=== PATIENT | male | born 1960 | race Caucasian/White ===

== ENCOUNTER 2021-06-07 11:37 | Inpatient (IN) ==
[2021-06-07 12:37] LABS: ALT 16 U/L (7-52); AST 21 U/L (13-39); Albumin 3.8 g/dL (3.2-5.2); Albumin/Globulin Ratio 1.1 (1-3); Alkaline Phosphatase 77 U/L (35-149); Anion Gap 6 mmol/L (2-11); Blood Urea Nitrogen 15 mg/dL (6-24); C Reactive Protein < 1.00 mg/L (<8.01); CO2 Carbon Dioxide 28 mmol/L (22-32); Calcium 9.6 mg/dL (8.6-10.3); Chloride 103 mmol/L (101-111); EGFR African American 151.6 (>60); EGFR Non-African American 125.3 (>60); Globulin 3.6 g/dL (2-4); Glucose 121 mg/dL (70-100); Potassium 4.4 mmol/L (3.5-5.0); Sodium 137 mmol/L (135-145); Total Protein 7.4 g/dL (6.4-8.9)
[2021-06-07 13:06] LABS: ABS Eosinophils 0.1 10^3/ul (0-0.6); ABS Lymphocytes 0.7 10^3/ul (1.0-4.8); ABS Monocytes 0.3 10^3/ul (0-0.8); ABS Neutrophils 1.8 10^3/ul (1.5-7.7); Eosinophil % 4.3 %; Hematocrit 26 % (42-52); Hemoglobin 8.8 g/dL (14.0-18.0); Lymphocyte % 24.1 %; Mean Corpuscular HGB Conc 34 g/dL (31-36); Mean Corpuscular Hemoglobin 31 pg (27-31); Mean Corpuscular Volume 92 fL (80-94); Mean Platelet Volume 7.2 fL (7.4-10.4); Platelet Count 85 10^3/uL (150-450); Red Blood Count 2.85 10^6 /uL (4.18-5.48); Red Cell Distribution Width 18 % (10-15)
[2021-06-07] MEDS ORDERED: Pantoprazole VIAL 40 MG VIAL IV ONE (13:10)
[2021-06-07 13:15] LABS: INR 1.05 (0.86-1.15)
[2021-06-07] MEDS: Pantoprazole 80 mg in NS BAG 80 MG/250 ML BAG IV SCH (14:33)
[2021-06-07 15:13] LABS: Rapid COVID-19 Molecular Undetected (Undetected)
[2021-06-07] MEDS ORDERED: LORazepam 2 mg VIAL 1 ml IV PUSH ONE (17:27)
[2021-06-07] MEDS ORDERED: Lorazepam PYXIS KEY PRN (17:27)
[2021-06-07] MEDS ORDERED: Albuterol HFA INHALER 8 gm MDI INH PRN (17:37)
[2021-06-07] MEDS: NS 0.9% 1000 ml BAG 1,000 ML IV SCH (17:47)
[2021-06-07 19:25] LABS: Urine Appearance Cloudy; Urine Bilirubin Negative (Negative); Urine Blood Negative (Negative); Urine Color Amber; Urine Glucose Negative (Negative); Urine Ketones Negative (Negative); Urine Nitrite Negative (Negative); Urine Protein 1+(30 mg/dL) (Negative); Urine Urobilinogen Negative (Negative)
[2021-06-07 19:35] LABS: Urine Bacteria Absent (Absent); Urine Red Blood Cell 1+(3-5/hpf) (Absent); Urine White Blood Cell Trace(0-5/hpf) (Absent); Urine Yeast Present (Absent)
[2021-06-07] MEDS ORDERED: Dextrose 50% Syringe 50 ml 25 GM/50 ML SYRINGE IV PUSH PRN (19:36)
[2021-06-07 20:01] LABS: ABS Eosinophils 0.1 10^3/ul (0-0.6); ABS Lymphocytes 0.8 10^3/ul (1.0-4.8); ABS Monocytes 0.3 10^3/ul (0-0.8); ABS Neutrophils 1.4 10^3/ul (1.5-7.7); Eosinophil % 4.5 %; Hematocrit 25 % (42-52); Hemoglobin 8.4 g/dL (14.0-18.0); Lymphocyte % 32.1 %; Mean Corpuscular HGB Conc 33 g/dL (31-36); Mean Corpuscular Hemoglobin 31 pg (27-31); Mean Corpuscular Volume 93 fL (80-94); Mean Platelet Volume 7.1 fL (7.4-10.4); Platelet Count 76 10^3/uL (150-450); Red Blood Count 2.71 10^6 /uL (4.18-5.48); Red Cell Distribution Width 18 % (10-15); White Blood Count 2.6 10^3/uL (3.5-10.8)
[2021-06-07] MEDS: LORazepam 2 mg VIAL 1 ml IV PUSH PRN (23:35)
[2021-06-08] MEDS: Pantoprazole 80 mg in NS BAG 80 MG/250 ML BAG IV SCH ×2 (00:08→10:27)
[2021-06-08 05:28] LABS: ABS Eosinophils 0.1 10^3/ul (0-0.6); ABS Lymphocytes 0.8 10^3/ul (1.0-4.8); ABS Monocytes 0.3 10^3/ul (0-0.8); ABS Neutrophils 1.6 10^3/ul (1.5-7.7); Eosinophil % 4.7 %; Hematocrit 25 % (42-52); Hemoglobin 8.6 g/dL (14.0-18.0); Lymphocyte % 30.1 %; Mean Corpuscular HGB Conc 34 g/dL (31-36); Mean Corpuscular Hemoglobin 31 pg (27-31); Mean Corpuscular Volume 92 fL (80-94); Platelet Count 79 10^3/uL (150-450); Red Blood Count 2.77 10^6 /uL (4.18-5.48); Red Cell Distribution Width 18 % (10-15); White Blood Count 2.8 10^3/uL (3.5-10.8)
[2021-06-08 05:48] LABS: Calcium 9.4 mg/dL (8.6-10.3); EGFR African American 134.7 (>60); EGFR Non-African American 111.4 (>60); Potassium 4.3 mmol/L (3.5-5.0)
[2021-06-08] MEDS: Tiotropium Brom/Olodaterol MDI INH SCH (07:25)
[2021-06-08] MEDS: NS 0.9% 1000 ml BAG 1,000 ML IV SCH (10:26)
[2021-06-08 13:32] LABS: ABS Eosinophils 0.1 10^3/ul (0-0.6); ABS Lymphocytes 0.8 10^3/ul (1.0-4.8); ABS Monocytes 0.3 10^3/ul (0-0.8); ABS Neutrophils 1.4 10^3/ul (1.5-7.7); Eosinophil % 4.8 %; Hematocrit 27 % (42-52); Hemoglobin 9.1 g/dL (14.0-18.0); Lymphocyte % 29.6 %; Mean Corpuscular HGB Conc 34 g/dL (31-36); Mean Corpuscular Hemoglobin 31 pg (27-31); Mean Corpuscular Volume 92 fL (80-94); Mean Platelet Volume 7.5 fL (7.4-10.4); Platelet Count 74 10^3/uL (150-450); Red Blood Count 2.91 10^6 /uL (4.18-5.48); Red Cell Distribution Width 18 % (10-15); White Blood Count 2.6 10^3/uL (3.5-10.8)
[2021-06-08] MEDS ORDERED: Midazolam 10 mg/10 ml VIAL 1 mg/ml 10 ml VIAL (10 mg) ONE (16:08)
[2021-06-08] MEDS ORDERED: fentaNYL 100 mcg/2 ml 50 MCG/ML VIAL ONE (16:09)
[2021-06-09] MEDS: Tiotropium Brom/Olodaterol MDI INH SCH (07:31)
[2021-06-09] MEDS ORDERED: Pantoprazole VIAL 40 MG VIAL IV SCH (09:00)
[2021-06-09] MEDS ORDERED: PAIN RELIEVING RUB (MENTHOL/SALICYLATE) 1 APPLIC TUBE TOPICAL PRN (12:09)
[2021-06-10 07:32] LABS: Hematocrit 27 % (42-52); Mean Corpuscular HGB Conc 34 g/dL (31-36); Mean Corpuscular Hemoglobin 31 pg (27-31); Mean Corpuscular Volume 91 fL (80-94); Mean Platelet Volume 7.4 fL (7.4-10.4); Platelet Count 85 10^3/uL (150-450); Red Blood Count 2.92 10^6 /uL (4.18-5.48); Red Cell Distribution Width 17 % (10-15); White Blood Count 2.9 10^3/uL (3.5-10.8)
[2021-06-10 07:57] LABS: ABS Eosinophils 0.1 10^3/ul (0-0.6); ABS Lymphocytes 0.8 10^3/ul (1.0-4.8); ABS Monocytes 0.3 10^3/ul (0-0.8); ABS Neutrophils 1.6 10^3/ul (1.5-7.7); Eosinophil % 4.3 %; Lymphocyte % 29.2 %; Nucleated Red Blood Cells % 0.1
[2021-06-10] MEDS: Tiotropium Brom/Olodaterol MDI INH SCH (09:09)
[2021-06-10 12:36] LABS: TSH Ultra Thyroid Stim Horm 1.04 mcIU/mL (0.34-5.60)
[2021-06-11] MEDS: Tiotropium Brom/Olodaterol MDI INH SCH (07:44)
[2021-06-11 14:29] LABS: Rapid COVID-19 Molecular Undetected (Undetected)
[2021-06-11] MEDS: LORazepam 2 mg VIAL 1 ml IV PUSH PRN (21:43)
[2021-06-12] MEDS: Tiotropium Brom/Olodaterol MDI INH SCH (07:29)
[2021-06-12 12:53] VITALS: BP 115/74
== END 2021-06-12 15:00 | DRG 241 ==
LOC: ED 11:37 → SUATTDRO 23:54 → MEDTELE 23:54
PROVIDERS: ADMIT Internal Medicine; ATTEND Hospitalist

== ENCOUNTER 2021-08-20 17:32 | Inpatient (IN) ==
[2021-08-20 18:47] LABS: ABS Basophils 0.1 10^3/ul (0-0.2); ABS Eosinophils 0.3 10^3/ul (0-0.6); ABS Lymphocytes 1.6 10^3/ul (1.0-4.8); ABS Monocytes 0.7 10^3/ul (0-0.8); ABS Neutrophils 4.9 10^3/ul (1.5-7.7); Eosinophil % 4.3 %; Hematocrit 32 % (42-52); Lymphocyte % 21.3 %; Mean Corpuscular HGB Conc 34 g/dL (31-36); Mean Corpuscular Hemoglobin 29 pg (27-31); Mean Corpuscular Volume 84 fL (80-94); Mean Platelet Volume 7.3 fL (7.4-10.4); Platelet Count 128 10^3/uL (150-450); Red Blood Count 3.85 10^6 /uL (4.18-5.48); Red Cell Distribution Width 17 % (10-15); White Blood Count 7.5 10^3/uL (3.5-10.8)
[2021-08-20 19:27] LABS: Albumin 4.3 g/dL (3.2-5.2); Calcium 9.5 mg/dL (8.6-10.3); Magnesium 1.9 mg/dL (1.9-2.7); Potassium 4.8 mmol/L (3.5-5.0); Total Bilirubin 0.5 mg/dL (0.2-1.0)
[2021-08-20 19:33] LABS: Albumin/Globulin Ratio 1.5 (1-3); Globulin 2.9 g/dL (2-4); Total Protein 7.2 g/dL (6.4-8.9); eGFR CKD-EPI 74.4 (>60)
[2021-08-20 19:45] LABS: TSH Ultra Thyroid Stim Horm 1.22 mcIU/mL (0.34-5.60)
[2021-08-20 19:54] LABS: Activated Partial Thrombo Time 34.6 seconds (26.0-38.0); INR 1.15 (0.86-1.15)
[2021-08-20] MEDS ORDERED: Pantoprazole VIAL 40 MG VIAL IV ONE (20:06)
[2021-08-20] MEDS ORDERED: Pantoprazole 80 mg in NS BAG 80 MG/250 ML BAG IV ONE (20:30)
[2021-08-20] MEDS ORDERED: hydrOXYzine LIQ ORALSYR 2 MG/ML PO PRN (23:01)
[2021-08-20] MEDS ORDERED: Albuterol/Ipratropium NEB.SOL (2.5/0.5 MG) 3 ML NEB.SOLN INH PRN (23:01)
[2021-08-20] MEDS ORDERED: Senna TAB 8.6 mg TAB PO PRN (23:01)
[2021-08-20] MEDS ORDERED: Albuterol HFA INHALER 8 gm MDI INH PRN (23:01)
[2021-08-20] MEDS ORDERED: NS 0.9% 1000 ml BAG 1,000 ML IV SCH (23:15)
[2021-08-20] MEDS ORDERED: Dextrose 50% Syringe 50 ml 25 GM/50 ML SYRINGE IV PUSH PRN (23:19)
[2021-08-21 00:16] LABS: Corrected Retic Count 1.6 % (0.5-1.5); Hematocrit for Retic CNT 32 % (42-52); Immature Retic Fraction 0.45; RBC Retic Count 3.88 10^6/uL (4.18-5.48)
[2021-08-21 01:37] LABS: Rapid COVID-19 Molecular Undetected (Undetected)
[2021-08-21 01:45] LABS: Ferritin 24.6 ng/mL (24-336)
[2021-08-21 04:19] LABS: Hematocrit 28 % (42-52); Hemoglobin 9.2 g/dL (14.0-18.0)
[2021-08-21] MEDS ORDERED: Pantoprazole VIAL 40 MG VIAL IV SCH (09:00)
[2021-08-21] MEDS ORDERED: Umeclidin/Vilant 62.5 MDI 62.5/25 mcg 14 INH ELLIPTA DEVICE INH SCH (09:00)
[2021-08-21 09:31] LABS: Hematocrit 25 % (42-52); Hemoglobin 8.2 g/dL (14.0-18.0)
[2021-08-21] MEDS: Vitamin THERAPEUTIC TAB PO SCH (10:00)
[2021-08-21] MEDS: PAIN RELIEVING RUB (MENTHOL/SALICYLATE) 1 APPLIC TUBE TOPICAL SCH (11:10)
[2021-08-21] MEDS: Pantoprazole 80 mg in NS BAG 80 MG/250 ML BAG IV SCH ×2 (12:59→20:42)
[2021-08-21] MEDS ORDERED: Lactated Ringers 1000 ml BAG 1,000 ML IV ONE (15:34)
[2021-08-21 15:37] LABS: Hematocrit 23 % (42-52); Hemoglobin 7.6 g/dL (14.0-18.0)
[2021-08-21] MEDS ORDERED: Buffered Lidocaine 1% SYRIN 1 ml INTRADERM ONE (19:09)
[2021-08-21 21:41] LABS: Urine Appearance Cloudy; Urine Bilirubin Negative (Negative); Urine Blood Negative (Negative); Urine Color Yellow; Urine Glucose Negative (Negative); Urine Ketones Trace (Negative); Urine Nitrite Negative (Negative); Urine Protein 1+(30 mg/dL) (Negative); Urine Specific Gravity 1.018 (1.002-1.030); Urine Urobilinogen Negative (Negative)
[2021-08-21 22:01] LABS: Urine Bacteria Absent (Absent); Urine Red Blood Cell Absent (Absent); Urine Squamous Epithelial Cell Present (Absent); Urine White Blood Cell 3+(>20/hpf) (Absent)
[2021-08-22 00:16] LABS: Hematocrit 24 % (42-52); Hemoglobin 8.3 g/dL (14.0-18.0)
[2021-08-22 06:37] LABS: Hematocrit 21 % (42-52); Hemoglobin 7.4 g/dL (14.0-18.0); Mean Corpuscular HGB Conc 35 g/dL (31-36); Mean Corpuscular Hemoglobin 29 pg (27-31); Mean Corpuscular Volume 84 fL (80-94); Red Blood Count 2.52 10^6 /uL (4.18-5.48); Red Cell Distribution Width 17 % (10-15); White Blood Count 5.2 10^3/uL (3.5-10.8)
[2021-08-22 06:44] LABS: Calcium 8.6 mg/dL (8.6-10.3); Potassium 3.9 mmol/L (3.5-5.0); eGFR CKD-EPI 78.6 (>60)
[2021-08-22 06:57] LABS: ABS Eosinophils 0.2 10^3/ul (0-0.6); ABS Lymphocytes 1.5 10^3/ul (1.0-4.8); ABS Monocytes 0.6 10^3/ul (0-0.8); ABS Neutrophils 2.8 10^3/ul (1.5-7.7); Eosinophil % 3.4 %; Lymphocyte % 29.5 %; Mean Platelet Volume 6.3 fL (7.4-10.4); Nucleated Red Blood Cells % 0.1; Platelet Count 83 10^3/uL (150-450)
[2021-08-22] MEDS: Tiotropium Brom/Olodaterol MDI INH SCH (08:25)
[2021-08-22] MEDS: Vitamin THERAPEUTIC TAB PO SCH (08:41)
[2021-08-22] MEDS: Pantoprazole 80 mg in NS BAG 80 MG/250 ML BAG IV SCH (10:54)
[2021-08-22] MEDS: PAIN RELIEVING RUB (MENTHOL/SALICYLATE) 1 APPLIC TUBE TOPICAL SCH ×2 (10:55→21:22)
[2021-08-22 14:22] LABS: Hematocrit 23 % (42-52)
[2021-08-22 19:00] LABS: Hematocrit 21 % (42-52); Hemoglobin 7.4 g/dL (14.0-18.0)
[2021-08-23] MEDS: Pantoprazole 80 mg in NS BAG 80 MG/250 ML BAG IV SCH ×3 (04:29→15:21)
[2021-08-23 07:34] LABS: ABS Eosinophils 0.1 10^3/ul (0-0.6); ABS Lymphocytes 0.5 10^3/ul (1.0-4.8); ABS Monocytes 0.3 10^3/ul (0-0.8); ABS Neutrophils 1.3 10^3/ul (1.5-7.7); Eosinophil % 3.5 %; Hematocrit 25 % (42-52); Hemoglobin 8.7 g/dL (14.0-18.0); Lymphocyte % 21.7 %; Mean Corpuscular HGB Conc 35 g/dL (31-36); Mean Corpuscular Hemoglobin 30 pg (27-31); Mean Corpuscular Volume 85 fL (80-94); Mean Platelet Volume 6.7 fL (7.4-10.4); Nucleated Red Blood Cells % 0.1; Platelet Count 56 10^3/uL (150-450); Red Blood Count 2.93 10^6 /uL (4.18-5.48); Red Cell Distribution Width 16 % (10-15); White Blood Count 2.2 10^3/uL (3.5-10.8)
[2021-08-23] MEDS: Tiotropium Brom/Olodaterol MDI INH SCH (07:55)
[2021-08-23] MEDS: Vitamin THERAPEUTIC TAB PO SCH (07:58)
[2021-08-23] MEDS: PAIN RELIEVING RUB (MENTHOL/SALICYLATE) 1 APPLIC TUBE TOPICAL SCH ×2 (07:59→22:19)
[2021-08-23 15:56] LABS: Hematocrit 24 % (42-52); Hemoglobin 8.4 g/dL (14.0-18.0)
[2021-08-24] MEDS: Pantoprazole 80 mg in NS BAG 80 MG/250 ML BAG IV SCH ×3 (01:30→20:54)
[2021-08-24] MEDS: Tiotropium Brom/Olodaterol MDI INH SCH (07:45)
[2021-08-24 07:47] LABS: Hematocrit 28 % (42-52); Hemoglobin 9.8 g/dL (14.0-18.0); Mean Corpuscular HGB Conc 35 g/dL (31-36); Mean Corpuscular Hemoglobin 30 pg (27-31); Mean Corpuscular Volume 85 fL (80-94); Mean Platelet Volume 7.1 fL (7.4-10.4); Platelet Count 48 10^3/uL (150-450); Red Cell Distribution Width 15 % (10-15); White Blood Count 2.6 10^3/uL (3.5-10.8)
[2021-08-24 07:51] LABS: Calcium 8.7 mg/dL (8.6-10.3); Potassium 3.6 mmol/L (3.5-5.0); eGFR CKD-EPI 102.5 (>60)
[2021-08-24 08:29] LABS: RBC Morphology Normal (Normal)
[2021-08-24 08:30] LABS: ABS Lymphocytes 0.6 10^3/ul (1.0-4.8); ABS Monocytes 0.4 10^3/ul (0-0.8); ABS Neutrophils 1.6 10^3/ul (1.5-7.7); Eosinophil % 0.8 %; Lymphocyte % 22.3 %; Nucleated Red Blood Cells % 0.3
[2021-08-24] MEDS: PAIN RELIEVING RUB (MENTHOL/SALICYLATE) 1 APPLIC TUBE TOPICAL SCH ×2 (09:50→20:56)
[2021-08-24] MEDS: Vitamin THERAPEUTIC TAB PO SCH (09:50)
[2021-08-24] MEDS ORDERED: NS 0.9% 1000 ml BAG 1,000 ML IV SCH (10:45)
[2021-08-24] MEDS: cefTRIAXone 1 gm/50 mL NS BAG 1 GM/50 ML BAG IVPB SCH (15:29)
[2021-08-24] MEDS ORDERED: Midazolam 10 mg/10 ml VIAL 1 mg/ml 10 ml VIAL (10 mg) ONE (16:43)
[2021-08-24] MEDS ORDERED: fentaNYL 100 mcg/2 ml 50 MCG/ML VIAL ONE (16:43)
[2021-08-25] MEDS: Acetaminophen IV 1 GM/100ML 100 ML IV PRN (04:30)
[2021-08-25] MEDS: Pantoprazole 80 mg in NS BAG 80 MG/250 ML BAG IV SCH ×3 (04:45→20:39)
[2021-08-25 06:40] LABS: ABS Eosinophils 0.1 10^3/ul (0-0.6); ABS Lymphocytes 0.7 10^3/ul (1.0-4.8); ABS Monocytes 0.4 10^3/ul (0-0.8); Hematocrit 27 % (42-52); Hemoglobin 9.4 g/dL (14.0-18.0); Lymphocyte % 22.8 %; Mean Corpuscular HGB Conc 35 g/dL (31-36); Mean Corpuscular Hemoglobin 30 pg (27-31); Mean Corpuscular Volume 86 fL (80-94); Mean Platelet Volume 7.4 fL (7.4-10.4); Nucleated Red Blood Cells % 0.1; Platelet Count 60 10^3/uL (150-450); Red Blood Count 3.18 10^6 /uL (4.18-5.48); Red Cell Distribution Width 16 % (10-15); White Blood Count 3.2 10^3/uL (3.5-10.8)
[2021-08-25] MEDS: Tiotropium Brom/Olodaterol MDI INH SCH (07:54)
[2021-08-25] MEDS: Vitamin THERAPEUTIC TAB PO SCH (09:40)
[2021-08-25] MEDS: PAIN RELIEVING RUB (MENTHOL/SALICYLATE) 1 APPLIC TUBE TOPICAL SCH ×2 (09:42→20:40)
[2021-08-25] MEDS: cefTRIAXone 1 gm/50 mL NS BAG 1 GM/50 ML BAG IVPB SCH (15:37)
[2021-08-25 18:07] LABS: % Iron Saturation 16 % (14 - 50); Total Iron Binding Capacity 322 mcg/dL (250 - 400)
[2021-08-26 06:30] LABS: ABS Eosinophils 0.1 10^3/ul (0-0.6); ABS Lymphocytes 0.6 10^3/ul (1.0-4.8); ABS Monocytes 0.2 10^3/ul (0-0.8); ABS Neutrophils 1.4 10^3/ul (1.5-7.7); Eosinophil % 5.3 %; Hematocrit 27 % (42-52); Lymphocyte % 24.9 %; Mean Corpuscular HGB Conc 34 g/dL (31-36); Mean Corpuscular Hemoglobin 29 pg (27-31); Mean Corpuscular Volume 86 fL (80-94); Mean Platelet Volume 7.4 fL (7.4-10.4); Nucleated Red Blood Cells % 0.1; Platelet Count 57 10^3/uL (150-450); Red Blood Count 3.08 10^6 /uL (4.18-5.48); Red Cell Distribution Width 16 % (10-15); White Blood Count 2.4 10^3/uL (3.5-10.8)
[2021-08-26] MEDS: Tiotropium Brom/Olodaterol MDI INH SCH (07:14)
[2021-08-26] MEDS: Vitamin THERAPEUTIC TAB PO SCH (07:39)
[2021-08-26] MEDS: PAIN RELIEVING RUB (MENTHOL/SALICYLATE) 1 APPLIC TUBE TOPICAL SCH ×2 (07:44→22:43)
[2021-08-26] MEDS: Pantoprazole 80 mg in NS BAG 80 MG/250 ML BAG IV SCH (09:11)
[2021-08-26] MEDS: cefTRIAXone 1 gm/50 mL NS BAG 1 GM/50 ML BAG IVPB SCH (17:03)
[2021-08-27 04:22] LABS: Red Blood Count 2.08 10^6 /uL (4.18-5.48); White Blood Count 3.1 10^3/uL (3.5-10.8)
[2021-08-27 04:25] LABS: Hematocrit 18 % (42-52); Hemoglobin 6.1 g/dL (14.0-18.0); Mean Corpuscular HGB Conc 34 g/dL (31-36); Mean Corpuscular Hemoglobin 29 pg (27-31); Mean Corpuscular Volume 85 fL (80-94); Mean Platelet Volume 7.2 fL (7.4-10.4); Platelet Count 88 10^3/uL (150-450); Red Cell Distribution Width 15 % (10-15)
[2021-08-27 04:26] LABS: ABS Eosinophils 0.1 10^3/ul (0-0.6); ABS Lymphocytes 0.7 10^3/ul (1.0-4.8); ABS Monocytes 0.4 10^3/ul (0-0.8); ABS Neutrophils 1.9 10^3/ul (1.5-7.7); Eosinophil % 4.6 %; Lymphocyte % 22.3 %
[2021-08-27] MEDS: Vitamin THERAPEUTIC TAB PO SCH (07:40)
[2021-08-27] MEDS: Tiotropium Brom/Olodaterol MDI INH SCH (08:33)
[2021-08-27] MEDS: Pantoprazole 80 mg in NS BAG 80 MG/250 ML BAG IV SCH ×2 (10:17→22:36)
[2021-08-27] MEDS: PAIN RELIEVING RUB (MENTHOL/SALICYLATE) 1 APPLIC TUBE TOPICAL SCH ×2 (10:17→22:36)
[2021-08-27 16:00] LABS: Hematocrit 25 % (42-52); Hemoglobin 8.4 g/dL (14.0-18.0)
[2021-08-27 16:29] LABS: Potassium 3.8 mmol/L (3.5-5.0); eGFR CKD-EPI 103.7 (>60)
[2021-08-27] MEDS: cefTRIAXone 1 gm/50 mL NS BAG 1 GM/50 ML BAG IVPB SCH (16:34)
[2021-08-27 21:53] LABS: Hematocrit 23 % (42-52); Hemoglobin 7.9 g/dL (14.0-18.0)
[2021-08-28 04:28] LABS: Hematocrit 19 % (42-52); Hemoglobin 6.3 g/dL (14.0-18.0)
[2021-08-28] MEDS: Pantoprazole 80 mg in NS BAG 80 MG/250 ML BAG IV SCH ×2 (06:29→17:08)
[2021-08-28] MEDS: Tiotropium Brom/Olodaterol MDI INH SCH (07:17)
[2021-08-28] MEDS: PAIN RELIEVING RUB (MENTHOL/SALICYLATE) 1 APPLIC TUBE TOPICAL SCH (07:39)
[2021-08-28] MEDS: Vitamin THERAPEUTIC TAB PO SCH (09:27)
[2021-08-28 11:46] LABS: ABS Eosinophils 0.1 10^3/ul (0-0.6); ABS Lymphocytes 0.5 10^3/ul (1.0-4.8); ABS Monocytes 0.2 10^3/ul (0-0.8); ABS Neutrophils 0.5 10^3/ul (1.5-7.7); Eosinophil % 5.9 %; Hematocrit 25 % (42-52); Hemoglobin 8.4 g/dL (14.0-18.0); Lymphocyte % 44.1 %; Mean Corpuscular HGB Conc 34 g/dL (31-36); Mean Corpuscular Hemoglobin 29 pg (27-31); Mean Corpuscular Volume 85 fL (80-94); Mean Platelet Volume 6.8 fL (7.4-10.4); Nucleated Red Blood Cells % 0.1; Platelet Count 60 10^3/uL (150-450); Red Blood Count 2.91 10^6 /uL (4.18-5.48); Red Cell Distribution Width 16 % (10-15); White Blood Count 1.2 10^3/uL (3.5-10.8)
[2021-08-28 13:28] LABS: Albumin 3.2 g/dL (3.2-5.2); Albumin/Globulin Ratio 1.3 (1-3); Calcium 8.1 mg/dL (8.6-10.3); Globulin 2.4 g/dL (2-4); Potassium 3.8 mmol/L (3.5-5.0); Total Bilirubin 0.5 mg/dL (0.2-1.0); Total Protein 5.6 g/dL (6.4-8.9); eGFR CKD-EPI 104.6 (>60)
[2021-08-28] MEDS: cefTRIAXone 1 gm/50 mL NS BAG 1 GM/50 ML BAG IVPB SCH (14:15)
[2021-08-28 19:31] LABS: Hematocrit 26 % (42-52); Hemoglobin 8.8 g/dL (14.0-18.0)
[2021-08-29] MEDS: PAIN RELIEVING RUB (MENTHOL/SALICYLATE) 1 APPLIC TUBE TOPICAL SCH ×3 (01:14→22:09)
[2021-08-29] MEDS: Pantoprazole 80 mg in NS BAG 80 MG/250 ML BAG IV SCH ×2 (03:53→14:39)
[2021-08-29 06:52] LABS: ABS Eosinophils 0.1 10^3/ul (0-0.6); ABS Lymphocytes 0.6 10^3/ul (1.0-4.8); ABS Monocytes 0.1 10^3/ul (0-0.8); ABS Neutrophils 0.7 10^3/ul (1.5-7.7); Eosinophil % 6.8 %; Hematocrit 25 % (42-52); Hemoglobin 8.5 g/dL (14.0-18.0); Lymphocyte % 39.5 %; Mean Corpuscular HGB Conc 34 g/dL (31-36); Mean Corpuscular Hemoglobin 29 pg (27-31); Mean Corpuscular Volume 84 fL (80-94); Platelet Count 62 10^3/uL (150-450); Red Blood Count 2.93 10^6 /uL (4.18-5.48); Red Cell Distribution Width 16 % (10-15); White Blood Count 1.5 10^3/uL (3.5-10.8)
[2021-08-29 06:58] LABS: Calcium 8.1 mg/dL (8.6-10.3); Potassium 3.7 mmol/L (3.5-5.0); eGFR CKD-EPI 102.9 (>60)
[2021-08-29] MEDS: Vitamin THERAPEUTIC TAB PO SCH (07:58)
[2021-08-29] MEDS: Tiotropium Brom/Olodaterol MDI INH SCH (10:10)
[2021-08-29] MEDS: cefTRIAXone 1 gm/50 mL NS BAG 1 GM/50 ML BAG IVPB SCH (14:44)
[2021-08-30] MEDS: Pantoprazole 80 mg in NS BAG 80 MG/250 ML BAG IV SCH ×3 (01:59→23:38)
[2021-08-30 05:54] LABS: Hematocrit 25 % (42-52); Hemoglobin 8.5 g/dL (14.0-18.0); Mean Corpuscular HGB Conc 34 g/dL (31-36); Mean Corpuscular Hemoglobin 29 pg (27-31); Mean Corpuscular Volume 84 fL (80-94); Mean Platelet Volume 7.3 fL (7.4-10.4); Platelet Count 71 10^3/uL (150-450); Red Blood Count 2.97 10^6 /uL (4.18-5.48); Red Cell Distribution Width 15 % (10-15); White Blood Count 1.7 10^3/uL (3.5-10.8)
[2021-08-30 06:01] LABS: Albumin 3.2 g/dL (3.2-5.2); Albumin/Globulin Ratio 1.2 (1-3); Calcium 8.2 mg/dL (8.6-10.3); Globulin 2.6 g/dL (2-4); Potassium 3.6 mmol/L (3.5-5.0); Total Bilirubin 0.3 mg/dL (0.2-1.0); Total Protein 5.8 g/dL (6.4-8.9); eGFR CKD-EPI 100.2 (>60)
[2021-08-30 06:04] LABS: ABS Eosinophils 0.1 10^3/ul (0-0.6); ABS Lymphocytes 0.6 10^3/ul (1.0-4.8); ABS Monocytes 0.2 10^3/ul (0-0.8); ABS Neutrophils 0.8 10^3/ul (1.5-7.7); Eosinophil % 7.3 %; Lymphocyte % 37.1 %; Nucleated Red Blood Cells % 0.1
[2021-08-30] MEDS: Tiotropium Brom/Olodaterol MDI INH SCH (07:08)
[2021-08-30] MEDS: PAIN RELIEVING RUB (MENTHOL/SALICYLATE) 1 APPLIC TUBE TOPICAL SCH ×2 (08:45→22:53)
[2021-08-30] MEDS: Vitamin THERAPEUTIC TAB PO SCH (08:45)
[2021-08-30] MEDS: cefTRIAXone 1 gm/50 mL NS BAG 1 GM/50 ML BAG IVPB SCH (14:35)
[2021-08-31 07:35] LABS: ABS Eosinophils 0.1 10^3/ul (0-0.6); ABS Lymphocytes 0.7 10^3/ul (1.0-4.8); ABS Monocytes 0.2 10^3/ul (0-0.8); ABS Neutrophils 0.9 10^3/ul (1.5-7.7); Eosinophil % 6.1 %; Hematocrit 25 % (42-52); Hemoglobin 8.7 g/dL (14.0-18.0); Lymphocyte % 33.9 %; Mean Corpuscular HGB Conc 34 g/dL (31-36); Mean Corpuscular Hemoglobin 29 pg (27-31); Mean Corpuscular Volume 85 fL (80-94); Mean Platelet Volume 7.2 fL (7.4-10.4); Platelet Count 80 10^3/uL (150-450); Red Blood Count 2.97 10^6 /uL (4.18-5.48); Red Cell Distribution Width 15 % (10-15); White Blood Count 1.9 10^3/uL (3.5-10.8)
[2021-08-31 07:48] LABS: Albumin 3.3 g/dL (3.2-5.2); Albumin/Globulin Ratio 1.2 (1-3); Calcium 8.4 mg/dL (8.6-10.3); Globulin 2.7 g/dL (2-4); Potassium 3.9 mmol/L (3.5-5.0); Total Bilirubin 0.3 mg/dL (0.2-1.0); eGFR CKD-EPI 99.5 (>60)
[2021-08-31] MEDS: Pantoprazole 80 mg in NS BAG 80 MG/250 ML BAG IV SCH ×3 (08:00→21:19)
[2021-08-31] MEDS: PAIN RELIEVING RUB (MENTHOL/SALICYLATE) 1 APPLIC TUBE TOPICAL SCH ×2 (08:00→21:20)
[2021-08-31] MEDS: Vitamin THERAPEUTIC TAB PO SCH (08:01)
[2021-08-31] MEDS: Tiotropium Brom/Olodaterol MDI INH SCH (09:35)
[2021-08-31] MEDS: Acetaminophen IV 1 GM/100ML 100 ML IV PRN (21:15)
[2021-09-01 05:58] LABS: ABS Eosinophils 0.1 10^3/ul (0-0.6); ABS Lymphocytes 0.6 10^3/ul (1.0-4.8); ABS Monocytes 0.3 10^3/ul (0-0.8); ABS Neutrophils 0.9 10^3/ul (1.5-7.7); Eosinophil % 5.8 %; Hematocrit 25 % (42-52); Hemoglobin 8.4 g/dL (14.0-18.0); Lymphocyte % 34.1 %; Mean Corpuscular HGB Conc 34 g/dL (31-36); Mean Corpuscular Hemoglobin 29 pg (27-31); Mean Corpuscular Volume 85 fL (80-94); Mean Platelet Volume 7.3 fL (7.4-10.4); Platelet Count 85 10^3/uL (150-450); Red Blood Count 2.93 10^6 /uL (4.18-5.48); Red Cell Distribution Width 16 % (10-15); White Blood Count 1.9 10^3/uL (3.5-10.8)
[2021-09-01 06:01] LABS: Albumin 3.3 g/dL (3.2-5.2); Albumin/Globulin Ratio 1.3 (1-3); Calcium 8.4 mg/dL (8.6-10.3); Globulin 2.6 g/dL (2-4); Potassium 3.8 mmol/L (3.5-5.0); Total Bilirubin 0.4 mg/dL (0.2-1.0); Total Protein 5.9 g/dL (6.4-8.9); eGFR CKD-EPI 98.4 (>60)
[2021-09-01] MEDS: Tiotropium Brom/Olodaterol MDI INH SCH (07:29)
[2021-09-01] MEDS: Pantoprazole 80 mg in NS BAG 80 MG/250 ML BAG IV SCH (08:46)
[2021-09-01] MEDS: Vitamin THERAPEUTIC TAB PO SCH (08:55)
[2021-09-01] MEDS: PAIN RELIEVING RUB (MENTHOL/SALICYLATE) 1 APPLIC TUBE TOPICAL SCH ×2 (08:55→20:51)
[2021-09-02 05:47] LABS: ABS Eosinophils 0.1 10^3/ul (0-0.6); ABS Lymphocytes 0.7 10^3/ul (1.0-4.8); ABS Monocytes 0.3 10^3/ul (0-0.8); ABS Neutrophils 1.4 10^3/ul (1.5-7.7); Eosinophil % 5.1 %; Hematocrit 26 % (42-52); Hemoglobin 8.8 g/dL (14.0-18.0); Mean Corpuscular HGB Conc 34 g/dL (31-36); Mean Corpuscular Hemoglobin 29 pg (27-31); Mean Corpuscular Volume 85 fL (80-94); Platelet Count 93 10^3/uL (150-450); Red Blood Count 3.07 10^6 /uL (4.18-5.48); Red Cell Distribution Width 15 % (10-15); White Blood Count 2.6 10^3/uL (3.5-10.8)
[2021-09-02] MEDS: Tiotropium Brom/Olodaterol MDI INH SCH (08:32)
[2021-09-02] MEDS: Vitamin THERAPEUTIC TAB PO SCH (09:39)
[2021-09-02] MEDS: PAIN RELIEVING RUB (MENTHOL/SALICYLATE) 1 APPLIC TUBE TOPICAL SCH ×2 (09:40→21:14)
[2021-09-03] MEDS: Tiotropium Brom/Olodaterol MDI INH SCH (07:28)
[2021-09-03] MEDS: Vitamin THERAPEUTIC TAB PO SCH (08:05)
[2021-09-03] MEDS: PAIN RELIEVING RUB (MENTHOL/SALICYLATE) 1 APPLIC TUBE TOPICAL SCH ×2 (08:06→20:13)
[2021-09-03 12:20] LABS: ABS Eosinophils 0.1 10^3/ul (0-0.6); ABS Lymphocytes 0.7 10^3/ul (1.0-4.8); ABS Monocytes 0.3 10^3/ul (0-0.8); ABS Neutrophils 2.2 10^3/ul (1.5-7.7); Eosinophil % 2.1 %; Hematocrit 25 % (42-52); Hemoglobin 8.6 g/dL (14.0-18.0); Lymphocyte % 20.5 %; Mean Corpuscular HGB Conc 34 g/dL (31-36); Mean Corpuscular Hemoglobin 29 pg (27-31); Mean Corpuscular Volume 85 fL (80-94); Mean Platelet Volume 7.2 fL (7.4-10.4); Nucleated Red Blood Cells % 0.1; Platelet Count 100 10^3/uL (150-450); Red Blood Count 2.97 10^6 /uL (4.18-5.48); Red Cell Distribution Width 15 % (10-15); White Blood Count 3.2 10^3/uL (3.5-10.8)
[2021-09-03 13:01] LABS: ALT 12 U/L (7-52); AST 16 U/L (13-39); Albumin 3.6 g/dL (3.2-5.2); Albumin/Globulin Ratio 1.4 (1-3); Alkaline Phosphatase 74 U/L (35-149); Anion Gap 4 mmol/L (2-11); Blood Urea Nitrogen 13 mg/dL (6-24); CO2 Carbon Dioxide 26 mmol/L (22-32); Calcium 8.9 mg/dL (8.6-10.3); Chloride 108 mmol/L (101-111); Globulin 2.6 g/dL (2-4); Glucose 210 mg/dL (70-100); Magnesium 1.8 mg/dL (1.9-2.7); Potassium 3.5 mmol/L (3.5-5.0); Sodium 138 mmol/L (135-145); Total Protein 6.2 g/dL (6.4-8.9); eGFR CKD-EPI 101.3 (>60)
[2021-09-03 13:18] LABS: Folate > 20.00 ng/mL (5.90-24.80)
[2021-09-03 13:19] LABS: Vitamin B12 491 pg/mL (180-914)
[2021-09-03] MEDS ORDERED: Magnesium Sulfate IV 1GM/100ML 1 GM/100 ML BAG IV ONE (13:24)
[2021-09-04] MEDS: PAIN RELIEVING RUB (MENTHOL/SALICYLATE) 1 APPLIC TUBE TOPICAL SCH ×2 (07:37→21:52)
[2021-09-04 07:57] LABS: ABS Eosinophils 0.1 10^3/ul (0-0.6); ABS Lymphocytes 0.6 10^3/ul (1.0-4.8); ABS Monocytes 0.3 10^3/ul (0-0.8); ABS Neutrophils 2.9 10^3/ul (1.5-7.7); Eosinophil % 2.7 %; Hematocrit 26 % (42-52); Hemoglobin 8.8 g/dL (14.0-18.0); Lymphocyte % 15.8 %; Mean Corpuscular HGB Conc 34 g/dL (31-36); Mean Corpuscular Hemoglobin 29 pg (27-31); Mean Corpuscular Volume 85 fL (80-94); Mean Platelet Volume 7.3 fL (7.4-10.4); Platelet Count 102 10^3/uL (150-450); Red Blood Count 3.07 10^6 /uL (4.18-5.48); Red Cell Distribution Width 15 % (10-15)
[2021-09-04 08:12] LABS: Calcium 9.1 mg/dL (8.6-10.3); Potassium 3.9 mmol/L (3.5-5.0); eGFR CKD-EPI 100.9 (>60)
[2021-09-04] MEDS: Tiotropium Brom/Olodaterol MDI INH SCH (08:36)
[2021-09-04] MEDS: Vitamin THERAPEUTIC TAB PO SCH (09:07)
[2021-09-05 04:52] LABS: ABS Eosinophils 0.1 10^3/ul (0-0.6); ABS Lymphocytes 0.7 10^3/ul (1.0-4.8); ABS Monocytes 0.3 10^3/ul (0-0.8); Eosinophil % 2.9 %; Hematocrit 26 % (42-52); Hemoglobin 8.6 g/dL (14.0-18.0); Lymphocyte % 16.7 %; Mean Corpuscular HGB Conc 33 g/dL (31-36); Mean Corpuscular Hemoglobin 28 pg (27-31); Mean Corpuscular Volume 84 fL (80-94); Mean Platelet Volume 7.3 fL (7.4-10.4); Platelet Count 107 10^3/uL (150-450); Red Blood Count 3.03 10^6 /uL (4.18-5.48); Red Cell Distribution Width 16 % (10-15); White Blood Count 4.2 10^3/uL (3.5-10.8)
[2021-09-05 05:08] LABS: Albumin 3.6 g/dL (3.2-5.2); Albumin/Globulin Ratio 1.2 (1-3); Calcium 9.1 mg/dL (8.6-10.3); Globulin 2.9 g/dL (2-4); Magnesium 1.9 mg/dL (1.9-2.7); Total Bilirubin 0.5 mg/dL (0.2-1.0); Total Protein 6.5 g/dL (6.4-8.9); eGFR CKD-EPI 87.2 (>60)
[2021-09-05] MEDS: Tiotropium Brom/Olodaterol MDI INH SCH (07:07)
[2021-09-05] MEDS: Vitamin THERAPEUTIC TAB PO SCH (08:35)
[2021-09-05] MEDS: PAIN RELIEVING RUB (MENTHOL/SALICYLATE) 1 APPLIC TUBE TOPICAL SCH ×2 (08:35→20:53)
[2021-09-06] MEDS: Tiotropium Brom/Olodaterol MDI INH SCH (07:32)
[2021-09-06] MEDS: Vitamin THERAPEUTIC TAB PO SCH (07:51)
[2021-09-06] MEDS: PAIN RELIEVING RUB (MENTHOL/SALICYLATE) 1 APPLIC TUBE TOPICAL SCH ×2 (07:51→20:28)
[2021-09-06] MEDS: Enoxaparin 40 MG/0.4 ML SYR SUBCUT SCH (12:47)
[2021-09-06 13:17] LABS: Rapid COVID-19 Molecular Undetected (Undetected)
[2021-09-07] MEDS: Tiotropium Brom/Olodaterol MDI INH SCH (08:31)
[2021-09-07] MEDS: Vitamin THERAPEUTIC TAB PO SCH (10:04)
[2021-09-07] MEDS: Enoxaparin 40 MG/0.4 ML SYR SUBCUT SCH (10:05)
[2021-09-07] MEDS: PAIN RELIEVING RUB (MENTHOL/SALICYLATE) 1 APPLIC TUBE TOPICAL SCH ×2 (10:05→21:16)
[2021-09-07] MEDS ORDERED: COVID-19 VACCINE, MRNA(PFIZER)/PF 30 MCG/0.3 ML IM ONE (15:00)
[2021-09-08] MEDS: Vitamin THERAPEUTIC TAB PO SCH (07:52)
[2021-09-08] MEDS: PAIN RELIEVING RUB (MENTHOL/SALICYLATE) 1 APPLIC TUBE TOPICAL SCH ×2 (07:52→21:35)
[2021-09-08] MEDS: Tiotropium Brom/Olodaterol MDI INH SCH (08:22)
[2021-09-08] MEDS: Enoxaparin 40 MG/0.4 ML SYR SUBCUT SCH (11:56)
[2021-09-09 05:36] LABS: ABS Eosinophils 0.1 10^3/ul (0-0.6); ABS Lymphocytes 0.6 10^3/ul (1.0-4.8); ABS Monocytes 0.5 10^3/ul (0-0.8); ABS Neutrophils 1.6 10^3/ul (1.5-7.7); Eosinophil % 3.1 %; Hematocrit 25 % (42-52); Hemoglobin 8.3 g/dL (14.0-18.0); Lymphocyte % 21.7 %; Mean Corpuscular HGB Conc 34 g/dL (31-36); Mean Corpuscular Hemoglobin 28 pg (27-31); Mean Corpuscular Volume 83 fL (80-94); Mean Platelet Volume 7.7 fL (7.4-10.4); Platelet Count 100 10^3/uL (150-450); Red Blood Count 2.98 10^6 /uL (4.18-5.48); Red Cell Distribution Width 16 % (10-15); White Blood Count 2.7 10^3/uL (3.5-10.8)
[2021-09-09] MEDS: Vitamin THERAPEUTIC TAB PO SCH (08:56)
[2021-09-09] MEDS: PAIN RELIEVING RUB (MENTHOL/SALICYLATE) 1 APPLIC TUBE TOPICAL SCH ×2 (08:57→22:10)
[2021-09-09] MEDS: Tiotropium Brom/Olodaterol MDI INH SCH (10:22)
[2021-09-09] MEDS: Enoxaparin 40 MG/0.4 ML SYR SUBCUT SCH (11:50)
[2021-09-10] MEDS: PAIN RELIEVING RUB (MENTHOL/SALICYLATE) 1 APPLIC TUBE TOPICAL SCH ×2 (05:31→07:33)
[2021-09-10] MEDS: Vitamin THERAPEUTIC TAB PO SCH (07:32)
[2021-09-10] MEDS: Tiotropium Brom/Olodaterol MDI INH SCH (07:34)
[2021-09-10] MEDS: Enoxaparin 40 MG/0.4 ML SYR SUBCUT SCH (12:20)
[2021-09-10 16:03] VITALS: BP 112/70
== END 2021-09-10 17:20 | disposition swing bed (61) | DRG 254 ==
LOC: ED 17:32 → SUATTDRO 22:57 → EDHOLD 22:57 → MEDTELE 08-21 08:06 → MED 08-24 22:32
PROVIDERS: ADMIT Hospitalist; ATTEND Hospitalist

== ENCOUNTER 2021-09-10 17:21 | Inpatient (IN) ==
[2021-09-10] MEDS ORDERED: Albuterol/Ipratropium NEB.SOL (2.5/0.5 MG) 3 ML NEB.SOLN INH PRN (17:42)
[2021-09-10] MEDS ORDERED: Albuterol HFA INHALER 8 gm MDI INH PRN (17:42)
[2021-09-10] MEDS ORDERED: Dextrose 50% Syringe 50 ml 25 GM/50 ML SYRINGE IV PUSH PRN (17:44)
[2021-09-11] MEDS: Tiotropium Brom/Olodaterol MDI INH SCH (08:12)
[2021-09-11] MEDS: Vitamin THERAPEUTIC TAB PO SCH (09:00)
[2021-09-11] MEDS: Enoxaparin 40 MG/0.4 ML SYR SUBCUT SCH (11:49)
[2021-09-12] MEDS: Tiotropium Brom/Olodaterol MDI INH SCH (07:37)
[2021-09-12] MEDS: Vitamin THERAPEUTIC TAB PO SCH (07:54)
[2021-09-12] MEDS: Enoxaparin 40 MG/0.4 ML SYR SUBCUT SCH (12:17)
[2021-09-12] MEDS: PAIN RELIEVING RUB (MENTHOL/SALICYLATE) 1 APPLIC TUBE TOPICAL PRN (21:05)
[2021-09-13] MEDS: Tiotropium Brom/Olodaterol MDI INH SCH (07:53)
[2021-09-13] MEDS: Vitamin THERAPEUTIC TAB PO SCH (08:49)
[2021-09-13] MEDS: PAIN RELIEVING RUB (MENTHOL/SALICYLATE) 1 APPLIC TUBE TOPICAL PRN (08:52)
[2021-09-13] MEDS: Enoxaparin 40 MG/0.4 ML SYR SUBCUT SCH (13:03)
[2021-09-14] MEDS: Tiotropium Brom/Olodaterol MDI INH SCH (08:17)
[2021-09-14] MEDS: Vitamin THERAPEUTIC TAB PO SCH (09:31)
[2021-09-14] MEDS: Enoxaparin 40 MG/0.4 ML SYR SUBCUT SCH (13:14)
[2021-09-15] MEDS: PAIN RELIEVING RUB (MENTHOL/SALICYLATE) 1 APPLIC TUBE TOPICAL PRN (07:49)
[2021-09-15] MEDS: Vitamin THERAPEUTIC TAB PO SCH (07:55)
[2021-09-15] MEDS: Tiotropium Brom/Olodaterol MDI INH SCH (08:16)
[2021-09-15] MEDS: Enoxaparin 40 MG/0.4 ML SYR SUBCUT SCH (12:29)
[2021-09-16] MEDS: PAIN RELIEVING RUB (MENTHOL/SALICYLATE) 1 APPLIC TUBE TOPICAL PRN ×2 (06:22→21:26)
[2021-09-16] MEDS: Tiotropium Brom/Olodaterol MDI INH SCH (08:48)
[2021-09-16] MEDS: Vitamin THERAPEUTIC TAB PO SCH (09:49)
[2021-09-16] MEDS: Enoxaparin 40 MG/0.4 ML SYR SUBCUT SCH (12:23)
[2021-09-17] MEDS: PAIN RELIEVING RUB (MENTHOL/SALICYLATE) 1 APPLIC TUBE TOPICAL PRN ×2 (06:17→20:33)
[2021-09-17] MEDS: Vitamin THERAPEUTIC TAB PO SCH (08:12)
[2021-09-17] MEDS: Tiotropium Brom/Olodaterol MDI INH SCH (10:46)
[2021-09-17 11:13] LABS: ABS Eosinophils 0.1 10^3/ul (0-0.6); ABS Lymphocytes 0.5 10^3/ul (1.0-4.8); ABS Monocytes 0.2 10^3/ul (0-0.8); ABS Neutrophils 1.3 10^3/ul (1.5-7.7); Eosinophil % 3.8 %; Hematocrit 25 % (42-52); Hemoglobin 8.5 g/dL (14.0-18.0); Mean Corpuscular HGB Conc 34 g/dL (31-36); Mean Corpuscular Hemoglobin 28 pg (27-31); Mean Corpuscular Volume 82 fL (80-94); Mean Platelet Volume 7.6 fL (7.4-10.4); Nucleated Red Blood Cells % 0.1; Platelet Count 76 10^3/uL (150-450); Red Cell Distribution Width 16 % (10-15); White Blood Count 2.1 10^3/uL (3.5-10.8)
[2021-09-17 11:45] LABS: Albumin 3.9 g/dL (3.2-5.2); Albumin/Globulin Ratio 1.4 (1-3); Globulin 2.7 g/dL (2-4); Potassium 4.1 mmol/L (3.5-5.0); Total Bilirubin 0.4 mg/dL (0.2-1.0); Total Protein 6.6 g/dL (6.4-8.9); eGFR CKD-EPI 98.1 (>60)
[2021-09-17] MEDS: Enoxaparin 40 MG/0.4 ML SYR SUBCUT SCH (12:08)
[2021-09-17] MEDS: Lidocaine Patch REMOVE NOTE PATCH OFF SCH (20:02)
[2021-09-17] MEDS ORDERED: diPHENhydraMINE 25 mg TAB PO ONE (20:57)
[2021-09-18] MEDS: Tiotropium Brom/Olodaterol MDI INH SCH (07:43)
[2021-09-18] MEDS: Vitamin THERAPEUTIC TAB PO SCH (07:50)
[2021-09-18] MEDS: Enoxaparin 40 MG/0.4 ML SYR SUBCUT SCH (12:52)
[2021-09-18] MEDS: Lidocaine Patch REMOVE NOTE PATCH OFF SCH (22:16)
[2021-09-19] MEDS: Vitamin THERAPEUTIC TAB PO SCH (08:11)
[2021-09-19] MEDS: Tiotropium Brom/Olodaterol MDI INH SCH (08:16)
[2021-09-19] MEDS: Enoxaparin 40 MG/0.4 ML SYR SUBCUT SCH (12:42)
[2021-09-19] MEDS: Lidocaine Patch REMOVE NOTE PATCH OFF SCH (19:54)
[2021-09-19] MEDS: PAIN RELIEVING RUB (MENTHOL/SALICYLATE) 1 APPLIC TUBE TOPICAL PRN (19:54)
[2021-09-20 02:06] LABS: Urine Appearance Clear; Urine Bilirubin Negative (Negative); Urine Blood Negative (Negative); Urine Color Yellow; Urine Glucose Negative (Negative); Urine Ketones Negative (Negative); Urine Nitrite Negative (Negative); Urine Protein 1+(30 mg/dL) (Negative); Urine Urobilinogen Negative (Negative)
[2021-09-20 02:09] LABS: Urine Bacteria Absent (Absent); Urine Red Blood Cell Trace(0-2/hpf) (Absent); Urine Squamous Epithelial Cell Present (Absent); Urine White Blood Cell Trace(0-5/hpf) (Absent)
[2021-09-20] MEDS: Tiotropium Brom/Olodaterol MDI INH SCH (09:01)
[2021-09-20] MEDS: Vitamin THERAPEUTIC TAB PO SCH (10:24)
[2021-09-20] MEDS: Enoxaparin 40 MG/0.4 ML SYR SUBCUT SCH (10:27)
[2021-09-20] MEDS: Lidocaine Patch REMOVE NOTE PATCH OFF SCH (22:07)
[2021-09-20] MEDS: PAIN RELIEVING RUB (MENTHOL/SALICYLATE) 1 APPLIC TUBE TOPICAL PRN (22:10)
[2021-09-21] MEDS: Vitamin THERAPEUTIC TAB PO SCH (07:38)
[2021-09-21] MEDS: Tiotropium Brom/Olodaterol MDI INH SCH (08:22)
[2021-09-21] MEDS: Enoxaparin 40 MG/0.4 ML SYR SUBCUT SCH (11:48)
[2021-09-21] MEDS: Lidocaine Patch REMOVE NOTE PATCH OFF SCH (21:34)
[2021-09-22] MEDS: Tiotropium Brom/Olodaterol MDI INH SCH (08:01)
[2021-09-22] MEDS: Vitamin THERAPEUTIC TAB PO SCH (09:06)
[2021-09-22] MEDS: Enoxaparin 40 MG/0.4 ML SYR SUBCUT SCH (11:54)
[2021-09-22] MEDS: Lidocaine Patch REMOVE NOTE PATCH OFF SCH (19:56)
[2021-09-23] MEDS: Tiotropium Brom/Olodaterol MDI INH SCH (07:40)
[2021-09-23] MEDS: Vitamin THERAPEUTIC TAB PO SCH (09:26)
[2021-09-23] MEDS: Enoxaparin 40 MG/0.4 ML SYR SUBCUT SCH (12:42)
[2021-09-23] MEDS: Lidocaine Patch REMOVE NOTE PATCH OFF SCH (20:06)
[2021-09-24 06:33] LABS: Hematocrit 27 % (42-52); Hemoglobin 8.9 g/dL (14.0-18.0); Platelet Count 71 10^3/uL (150-450)
[2021-09-24 06:51] LABS: eGFR CKD-EPI 100.6 (>60)
[2021-09-24] MEDS: Tiotropium Brom/Olodaterol MDI INH SCH (07:40)
[2021-09-24 08:54] LABS: Albumin 4.1 g/dL (3.2-5.2); Albumin/Globulin Ratio 1.5 (1-3); Globulin 2.7 g/dL (2-4); Potassium 3.7 mmol/L (3.5-5.0); Total Bilirubin 0.4 mg/dL (0.2-1.0); Total Protein 6.8 g/dL (6.4-8.9)
[2021-09-24] MEDS: Vitamin THERAPEUTIC TAB PO SCH (08:56)
[2021-09-24 10:14] LABS: ABS Eosinophils 0.1 10^3/ul (0-0.6); ABS Lymphocytes 0.6 10^3/ul (1.0-4.8); ABS Monocytes 0.2 10^3/ul (0-0.8); ABS Neutrophils 1.3 10^3/ul (1.5-7.7); Eosinophil % 4.2 %; Lymphocyte % 28.5 %; Mean Corpuscular HGB Conc 33 g/dL (31-36); Mean Corpuscular Hemoglobin 27 pg (27-31); Mean Corpuscular Volume 82 fL (80-94); Nucleated Red Blood Cells % 0.2; Red Blood Count 3.31 10^6 /uL (4.18-5.48); Red Cell Distribution Width 16 % (10-15); White Blood Count 2.3 10^3/uL (3.5-10.8)
[2021-09-24] MEDS: Enoxaparin 40 MG/0.4 ML SYR SUBCUT SCH (12:31)
[2021-09-24] MEDS: Lidocaine Patch REMOVE NOTE PATCH OFF SCH (19:34)
[2021-09-24] MEDS: PAIN RELIEVING RUB (MENTHOL/SALICYLATE) 1 APPLIC TUBE TOPICAL PRN (19:36)
[2021-09-25] MEDS: Tiotropium Brom/Olodaterol MDI INH SCH (07:08)
[2021-09-25] MEDS: Vitamin THERAPEUTIC TAB PO SCH (08:04)
[2021-09-25] MEDS: Enoxaparin 40 MG/0.4 ML SYR SUBCUT SCH (12:29)
[2021-09-25] MEDS: Lidocaine Patch REMOVE NOTE PATCH OFF SCH (20:39)
[2021-09-25] MEDS: PAIN RELIEVING RUB (MENTHOL/SALICYLATE) 1 APPLIC TUBE TOPICAL PRN (20:48)
[2021-09-26] MEDS: Tiotropium Brom/Olodaterol MDI INH SCH ×2 (06:57→06:59)
[2021-09-26] MEDS: PAIN RELIEVING RUB (MENTHOL/SALICYLATE) 1 APPLIC TUBE TOPICAL PRN (08:38)
[2021-09-26] MEDS: Vitamin THERAPEUTIC TAB PO SCH (09:04)
[2021-09-26] MEDS: Lidocaine PATCH 5% PATCH TRANSDERM PRN (09:04)
[2021-09-26] MEDS: Enoxaparin 40 MG/0.4 ML SYR SUBCUT SCH (13:19)
[2021-09-26] MEDS: Lidocaine Patch REMOVE NOTE PATCH OFF SCH (20:58)
[2021-09-27] MEDS: Tiotropium Brom/Olodaterol MDI INH SCH (07:37)
[2021-09-27] MEDS: PAIN RELIEVING RUB (MENTHOL/SALICYLATE) 1 APPLIC TUBE TOPICAL PRN ×2 (09:22→21:02)
[2021-09-27] MEDS: Vitamin THERAPEUTIC TAB PO SCH (09:22)
[2021-09-27] MEDS: Lidocaine PATCH 5% PATCH TRANSDERM PRN (09:22)
[2021-09-27] MEDS: Enoxaparin 40 MG/0.4 ML SYR SUBCUT SCH (12:30)
[2021-09-27] MEDS: Lidocaine Patch REMOVE NOTE PATCH OFF SCH (21:04)
[2021-09-28] MEDS: Tiotropium Brom/Olodaterol MDI INH SCH (07:28)
[2021-09-28] MEDS: Vitamin THERAPEUTIC TAB PO SCH (08:38)
[2021-09-28] MEDS: PAIN RELIEVING RUB (MENTHOL/SALICYLATE) 1 APPLIC TUBE TOPICAL PRN ×2 (08:38→20:32)
[2021-09-28] MEDS: Enoxaparin 40 MG/0.4 ML SYR SUBCUT SCH (12:46)
[2021-09-28] MEDS ORDERED: COVID-19 VACCINE, TRIS(PFIZER)/PF 30 MCG/0.3 ML IM ONE (15:00)
[2021-09-28] MEDS: Lidocaine Patch REMOVE NOTE PATCH OFF SCH (23:26)
[2021-09-29] MEDS: Tiotropium Brom/Olodaterol MDI INH SCH (08:26)
[2021-09-29] MEDS: Vitamin THERAPEUTIC TAB PO SCH (08:54)
[2021-09-29] MEDS: PAIN RELIEVING RUB (MENTHOL/SALICYLATE) 1 APPLIC TUBE TOPICAL PRN ×2 (08:57→20:10)
[2021-09-29] MEDS: Enoxaparin 40 MG/0.4 ML SYR SUBCUT SCH (12:38)
[2021-09-29] MEDS: Lidocaine Patch REMOVE NOTE PATCH OFF SCH (20:22)
[2021-09-30] MEDS: Tiotropium Brom/Olodaterol MDI INH SCH (07:31)
[2021-09-30] MEDS: Vitamin THERAPEUTIC TAB PO SCH (08:01)
[2021-09-30] MEDS: PAIN RELIEVING RUB (MENTHOL/SALICYLATE) 1 APPLIC TUBE TOPICAL PRN ×2 (08:01→08:05)
[2021-09-30] MEDS: Enoxaparin 40 MG/0.4 ML SYR SUBCUT SCH (12:36)
[2021-09-30] MEDS: Lidocaine Patch REMOVE NOTE PATCH OFF SCH (20:18)
[2021-10-01] MEDS: Tiotropium Brom/Olodaterol MDI INH SCH (07:37)
[2021-10-01 07:48] LABS: ABS Eosinophils 0.2 10^3/ul (0-0.6); ABS Lymphocytes 0.8 10^3/ul (1.0-4.8); ABS Monocytes 0.4 10^3/ul (0-0.8); ABS Neutrophils 1.7 10^3/ul (1.5-7.7); Hematocrit 29 % (42-52); Hemoglobin 9.3 g/dL (14.0-18.0); Lymphocyte % 25.3 %; Mean Corpuscular HGB Conc 33 g/dL (31-36); Mean Corpuscular Hemoglobin 27 pg (27-31); Mean Corpuscular Volume 82 fL (80-94); Mean Platelet Volume 7.4 fL (7.4-10.4); Platelet Count 88 10^3/uL (150-450); Red Blood Count 3.49 10^6 /uL (4.18-5.48); Red Cell Distribution Width 17 % (10-15)
[2021-10-01 07:59] LABS: Calcium 9.2 mg/dL (8.6-10.3); Potassium 4.1 mmol/L (3.5-5.0); eGFR CKD-EPI 100.6 (>60)
[2021-10-01] MEDS: Vitamin THERAPEUTIC TAB PO SCH (08:26)
[2021-10-01] MEDS: Enoxaparin 40 MG/0.4 ML SYR SUBCUT SCH (13:36)
[2021-10-01] MEDS: Lidocaine Patch REMOVE NOTE PATCH OFF SCH (22:36)
[2021-10-02] MEDS: Tiotropium Brom/Olodaterol MDI INH SCH (07:21)
[2021-10-02] MEDS: Vitamin THERAPEUTIC TAB PO SCH (09:46)
[2021-10-02] MEDS: Enoxaparin 40 MG/0.4 ML SYR SUBCUT SCH (13:48)
[2021-10-02] MEDS: Lidocaine Patch REMOVE NOTE PATCH OFF SCH (22:43)
[2021-10-03] MEDS: Tiotropium Brom/Olodaterol MDI INH SCH (07:50)
[2021-10-03] MEDS: Vitamin THERAPEUTIC TAB PO SCH (08:59)
[2021-10-03] MEDS: Enoxaparin 40 MG/0.4 ML SYR SUBCUT SCH (13:21)
[2021-10-03] MEDS: Lidocaine Patch REMOVE NOTE PATCH OFF SCH (21:05)
[2021-10-04] MEDS: Tiotropium Brom/Olodaterol MDI INH SCH (09:14)
[2021-10-04] MEDS: Vitamin THERAPEUTIC TAB PO SCH (09:32)
[2021-10-04] MEDS: Enoxaparin 40 MG/0.4 ML SYR SUBCUT SCH (13:55)
[2021-10-04] MEDS: Lidocaine Patch REMOVE NOTE PATCH OFF SCH (20:52)
[2021-10-05] MEDS: Vitamin THERAPEUTIC TAB PO SCH (09:25)
[2021-10-05] MEDS: Tiotropium Brom/Olodaterol MDI INH SCH (10:25)
[2021-10-05] MEDS: Enoxaparin 40 MG/0.4 ML SYR SUBCUT SCH (12:26)
[2021-10-05] MEDS: Lidocaine Patch REMOVE NOTE PATCH OFF SCH (20:21)
[2021-10-06] MEDS: Tiotropium Brom/Olodaterol MDI INH SCH (07:19)
[2021-10-06] MEDS: Vitamin THERAPEUTIC TAB PO SCH (08:34)
[2021-10-06] MEDS: Enoxaparin 40 MG/0.4 ML SYR SUBCUT SCH (12:54)
[2021-10-06] MEDS: Lidocaine Patch REMOVE NOTE PATCH OFF SCH (21:59)
[2021-10-07] MEDS: Tiotropium Brom/Olodaterol MDI INH SCH (08:39)
[2021-10-07] MEDS: Vitamin THERAPEUTIC TAB PO SCH (10:51)
[2021-10-07] MEDS: Enoxaparin 40 MG/0.4 ML SYR SUBCUT SCH (13:55)
[2021-10-07] MEDS: Lidocaine Patch REMOVE NOTE PATCH OFF SCH (21:29)
[2021-10-08] MEDS: Tiotropium Brom/Olodaterol MDI INH SCH (07:17)
[2021-10-08 09:08] LABS: Mean Platelet Volume 7.7 fL (7.4-10.4); Platelet Count 71 10^3/uL (150-450)
[2021-10-08] MEDS: Vitamin THERAPEUTIC TAB PO SCH (09:17)
[2021-10-08 09:21] LABS: eGFR CKD-EPI 99.5 (>60)
[2021-10-08] MEDS: Enoxaparin 40 MG/0.4 ML SYR SUBCUT SCH (11:36)
[2021-10-08] MEDS: Lidocaine Patch REMOVE NOTE PATCH OFF SCH (21:52)
[2021-10-09] MEDS: Tiotropium Brom/Olodaterol MDI INH SCH (08:06)
[2021-10-09] MEDS: Vitamin THERAPEUTIC TAB PO SCH (09:09)
[2021-10-09] MEDS: Enoxaparin 40 MG/0.4 ML SYR SUBCUT SCH (12:57)
[2021-10-09] MEDS: Lidocaine Patch REMOVE NOTE PATCH OFF SCH (21:05)
[2021-10-10] MEDS: Vitamin THERAPEUTIC TAB PO SCH (09:58)
[2021-10-10] MEDS: Tiotropium Brom/Olodaterol MDI INH SCH (09:59)
[2021-10-10] MEDS: Enoxaparin 40 MG/0.4 ML SYR SUBCUT SCH (12:49)
[2021-10-10] MEDS: Lidocaine Patch REMOVE NOTE PATCH OFF SCH (21:24)
[2021-10-11] MEDS: Tiotropium Brom/Olodaterol MDI INH SCH (08:45)
[2021-10-11] MEDS: Vitamin THERAPEUTIC TAB PO SCH (08:56)
[2021-10-11] MEDS: Enoxaparin 40 MG/0.4 ML SYR SUBCUT SCH (12:20)
[2021-10-11] MEDS: Lidocaine Patch REMOVE NOTE PATCH OFF SCH (20:17)
[2021-10-12] MEDS: Tiotropium Brom/Olodaterol MDI INH SCH (08:32)
[2021-10-12] MEDS: Vitamin THERAPEUTIC TAB PO SCH (09:02)
[2021-10-12] MEDS: Enoxaparin 40 MG/0.4 ML SYR SUBCUT SCH (12:38)
[2021-10-12] MEDS: Lidocaine Patch REMOVE NOTE PATCH OFF SCH (22:49)
[2021-10-13] MEDS: Lidocaine PATCH 5% PATCH TRANSDERM PRN (08:45)
[2021-10-13] MEDS: Vitamin THERAPEUTIC TAB PO SCH (08:47)
[2021-10-13] MEDS: Tiotropium Brom/Olodaterol MDI INH SCH (08:47)
[2021-10-13] MEDS: Enoxaparin 40 MG/0.4 ML SYR SUBCUT SCH (13:11)
[2021-10-13] MEDS: Lidocaine Patch REMOVE NOTE PATCH OFF SCH (20:33)
[2021-10-14] MEDS: PAIN RELIEVING RUB (MENTHOL/SALICYLATE) 1 APPLIC TUBE TOPICAL PRN (08:13)
[2021-10-14] MEDS: Lidocaine PATCH 5% PATCH TRANSDERM PRN (08:14)
[2021-10-14] MEDS: Tiotropium Brom/Olodaterol MDI INH SCH (08:16)
[2021-10-14] MEDS: Vitamin THERAPEUTIC TAB PO SCH (08:17)
[2021-10-14] MEDS: Enoxaparin 40 MG/0.4 ML SYR SUBCUT SCH (11:39)
[2021-10-14] MEDS: Lidocaine Patch REMOVE NOTE PATCH OFF SCH (21:47)
[2021-10-15] MEDS: Tiotropium Brom/Olodaterol MDI INH SCH (07:51)
[2021-10-15] MEDS: Vitamin THERAPEUTIC TAB PO SCH (08:19)
[2021-10-15] MEDS: Enoxaparin 40 MG/0.4 ML SYR SUBCUT SCH (11:48)
[2021-10-15] MEDS: Lidocaine Patch REMOVE NOTE PATCH OFF SCH (21:37)
[2021-10-15] MEDS: PAIN RELIEVING RUB (MENTHOL/SALICYLATE) 1 APPLIC TUBE TOPICAL PRN (23:40)
[2021-10-16] MEDS: Vitamin THERAPEUTIC TAB PO SCH (08:18)
[2021-10-16] MEDS: Tiotropium Brom/Olodaterol MDI INH SCH (09:55)
[2021-10-16] MEDS: Enoxaparin 40 MG/0.4 ML SYR SUBCUT SCH (12:01)
[2021-10-16] MEDS: Lidocaine Patch REMOVE NOTE PATCH OFF SCH (20:58)
[2021-10-17] MEDS: Tiotropium Brom/Olodaterol MDI INH SCH (07:02)
[2021-10-17] MEDS: Vitamin THERAPEUTIC TAB PO SCH (09:43)
[2021-10-17] MEDS: Enoxaparin 40 MG/0.4 ML SYR SUBCUT SCH (12:43)
[2021-10-17] MEDS: Lidocaine Patch REMOVE NOTE PATCH OFF SCH (20:04)
[2021-10-18] MEDS: Tiotropium Brom/Olodaterol MDI INH SCH (07:00)
[2021-10-18] MEDS: PAIN RELIEVING RUB (MENTHOL/SALICYLATE) 1 APPLIC TUBE TOPICAL PRN (07:48)
[2021-10-18] MEDS: Vitamin THERAPEUTIC TAB PO SCH (07:48)
[2021-10-18] MEDS: Enoxaparin 40 MG/0.4 ML SYR SUBCUT SCH ×2 (12:13→12:14)
[2021-10-18] MEDS: Lidocaine Patch REMOVE NOTE PATCH OFF SCH (21:12)
[2021-10-19] MEDS: Tiotropium Brom/Olodaterol MDI INH SCH (09:12)
[2021-10-19] MEDS: Enoxaparin 40 MG/0.4 ML SYR SUBCUT SCH (10:19)
[2021-10-19] MEDS: Vitamin THERAPEUTIC TAB PO SCH (10:19)
[2021-10-19] MEDS: Lidocaine Patch REMOVE NOTE PATCH OFF SCH (21:57)
[2021-10-19] MEDS: PAIN RELIEVING RUB (MENTHOL/SALICYLATE) 1 APPLIC TUBE TOPICAL PRN (23:15)
[2021-10-20] MEDS: Tiotropium Brom/Olodaterol MDI INH SCH (09:34)
[2021-10-20] MEDS: Enoxaparin 40 MG/0.4 ML SYR SUBCUT SCH (10:07)
[2021-10-20] MEDS: Vitamin THERAPEUTIC TAB PO SCH (10:07)
[2021-10-20] MEDS: Lidocaine Patch REMOVE NOTE PATCH OFF SCH (20:29)
[2021-10-21] MEDS: Tiotropium Brom/Olodaterol MDI INH SCH (09:45)
[2021-10-21] MEDS: Vitamin THERAPEUTIC TAB PO SCH (09:46)
[2021-10-21 10:15] LABS: ABS Eosinophils 0.1 10^3/ul (0-0.6); ABS Lymphocytes 0.7 10^3/ul (1.0-4.8); ABS Monocytes 0.3 10^3/ul (0-0.8); ABS Neutrophils 1.7 10^3/ul (1.5-7.7); Eosinophil % 3.8 %; Hematocrit 32 % (42-52); Hemoglobin 10.5 g/dL (14.0-18.0); Lymphocyte % 24.6 %; Mean Corpuscular HGB Conc 33 g/dL (31-36); Mean Corpuscular Hemoglobin 27 pg (27-31); Mean Corpuscular Volume 82 fL (80-94); Platelet Count 70 10^3/uL (150-450); Red Blood Count 3.98 10^6 /uL (4.18-5.48); Red Cell Distribution Width 16 % (10-15); White Blood Count 2.8 10^3/uL (3.5-10.8)
[2021-10-21 10:23] LABS: CO2 Carbon Dioxide 21 mmol/L (22-32); Calcium 9.9 mg/dL (8.6-10.3); Chloride 106 mmol/L (101-111); Sodium 135 mmol/L (135-145)
[2021-10-21 10:28] LABS: Blood Urea Nitrogen 24 mg/dL (6-24); Glucose 189 mg/dL (70-100); eGFR CKD-EPI 101.7 (>60)
[2021-10-21 11:08] LABS: Anion Gap 8 mmol/L (2-11)
[2021-10-21] MEDS: Enoxaparin 40 MG/0.4 ML SYR SUBCUT SCH (12:26)
[2021-10-21] MEDS: Lidocaine Patch REMOVE NOTE PATCH OFF SCH (21:26)
[2021-10-22] MEDS: Tiotropium Brom/Olodaterol MDI INH SCH (08:19)
[2021-10-22] MEDS: PAIN RELIEVING RUB (MENTHOL/SALICYLATE) 1 APPLIC TUBE TOPICAL PRN (08:19)
[2021-10-22] MEDS: Vitamin THERAPEUTIC TAB PO SCH (08:19)
[2021-10-22] MEDS: Enoxaparin 40 MG/0.4 ML SYR SUBCUT SCH (12:31)
[2021-10-22] MEDS: Lidocaine Patch REMOVE NOTE PATCH OFF SCH (20:51)
[2021-10-23] MEDS: Tiotropium Brom/Olodaterol MDI INH SCH (08:45)
[2021-10-23] MEDS: Vitamin THERAPEUTIC TAB PO SCH (09:00)
[2021-10-23] MEDS: Enoxaparin 40 MG/0.4 ML SYR SUBCUT SCH (13:02)
[2021-10-23] MEDS: Lidocaine Patch REMOVE NOTE PATCH OFF SCH (21:38)
[2021-10-24] MEDS: Tiotropium Brom/Olodaterol MDI INH SCH (07:02)
[2021-10-24] MEDS: Vitamin THERAPEUTIC TAB PO SCH (09:42)
[2021-10-24] MEDS: Enoxaparin 40 MG/0.4 ML SYR SUBCUT SCH (11:27)
[2021-10-24] MEDS: Lidocaine Patch REMOVE NOTE PATCH OFF SCH (20:28)
[2021-10-25] MEDS: Tiotropium Brom/Olodaterol MDI INH SCH (08:11)
[2021-10-25] MEDS: Vitamin THERAPEUTIC TAB PO SCH (08:18)
[2021-10-25] MEDS: Enoxaparin 40 MG/0.4 ML SYR SUBCUT SCH (12:31)
[2021-10-25] MEDS: Lidocaine Patch REMOVE NOTE PATCH OFF SCH (20:26)
[2021-10-26] MEDS: Vitamin THERAPEUTIC TAB PO SCH (10:27)
[2021-10-26] MEDS: Tiotropium Brom/Olodaterol MDI INH SCH (11:32)
[2021-10-26] MEDS: Enoxaparin 40 MG/0.4 ML SYR SUBCUT SCH (12:19)
[2021-10-26 17:01] VITALS: BP 127/60
== END 2021-10-26 16:40 | disposition home health service (06) | DRG 253 ==
LOC: MED 17:21 → SUATTDRO 17:21 → MED 09-22 20:26 → MEDTELE 09-30 09:08 → SSU 10-03 14:15
PROVIDERS: ADMIT Hospitalist; ATTEND Hospitalist